=== PATIENT | male | born 1980 | race African-American/Black ===

== ENCOUNTER 2022-05-16 17:32 | Emergency (ER) | payer MEDICAID, OTHER ==
[~2022-05-16] VITALS: Ht 175.3 cm; Wt 65.8 kg
--- NOTE | 2022-05-16 17:35 | NUR ---
BIBA NAD noted. A/O x2.
[2022-05-16] MEDS ORDERED: OMEP40CA21 PO (17:49)
[2022-05-16 18:16] LABS: HEMATOCRIT 34.7 % (36.7-47.1); MEAN CORPUSCULAR HEMOGLOBIN 27.4 uug (23.8-33.4); MEAN CORPUSCULAR VOLUME 83.8 fL (73.0-96.2); PLATELET COUNT (AUTO) 413 K/uL (152-348)
[2022-05-16 18:26] LABS: ALANINE AMINOTRANSFERASE 52 U/L (16-63); ALKALINE PHOSPHATASE 81 U/L (50-136); ASPARTATE AMINOTRANSFERASE 30 U/L (15-37); BILIRUBIN,TOTAL 0.2 mg/dL (0.2-1.0); CARBON DIOXIDE 34 mmol/L (21-32); CHLORIDE 101 mmol/L (98-107); CREATININE 0.8 mg/dL (0.6-1.3); GLUCOSE 115 mg/dL (74-106); LIPASE 71 U/L (73-393); POTASSIUM 3.8 mmol/L (3.5-5.1); TOTAL PROTEIN, SERUM 7.7 g/dL (6.4-8.2); UREA NITROGEN, BLOOD 6 mg/dL (7-18)
[2022-05-16] MEDS ORDERED: PROC10TA13 PO (18:28)
[2022-05-16] MEDS ORDERED: DOCU100C36 PO (18:28)
[2022-05-16] MEDS ORDERED: SUCR1TAB PO (18:28)
[2022-05-16] MEDS ORDERED: PANT40TA2 PO (18:28)
[2022-05-16] MEDS ORDERED: ONDA-104 PO (18:28)
[2022-05-16] MEDS ORDERED: SUCR1ORA PO (18:28)
[2022-05-16 18:30] LABS: BILIRUBIN,DIRECT < 0.1 mg/dL (0.0-0.2)
[2022-05-16] MEDS ORDERED: HYDROMORPHONE 1 MG/1 ML DISP.SYRIN IV ONE ×2 (18:45→20:30)
[2022-05-16] MEDS ORDERED: ONDANSETRON 4 MG/2 ML VIAL IV ONE (18:45)
--- NOTE | 2022-05-16 18:50 | NUR ---
Dr. Jones at bedside. MSE in progress.
[2022-05-16] MEDS ORDERED: ONDANSETRON 4 MG/2 ML VIAL ONE (18:53)
[2022-05-16] MEDS ORDERED: HYDROMORPHONE 1 MG/1 ML DISP.SYRIN ONE ×2 (18:53→20:54)
[2022-05-16] MEDS ORDERED: DICYCLOMINE HCL LIQ 10 MG/5 ML UDC PO ONE (19:00)
[2022-05-16] MEDS ORDERED: MAG HYDROX/AL HYDROX/SIMETH 30 ML LIQUID UDC PO ONE (19:00)
[2022-05-16] MEDS ORDERED: LIDOCAINE VISCUS 2% 15 ML UDC MM ONE (19:00)
[2022-05-16] MEDS ORDERED: DICYCLOMINE HCL LIQ 10 MG/5 ML UDC ONE (19:17)
[2022-05-16] MEDS ORDERED: LIDOCAINE VISCUS 2% 15 ML UDC ONE (19:17)
[2022-05-16] MEDS ORDERED: MAG HYDROX/AL HYDROX/SIMETH 30 ML LIQUID UDC ONE (19:17)
[2022-05-16 19:35] LABS: *BILIRUBIN,URIN NEGATIVE (NEGATIVE); *BLOOD, URINE NEGATIVE (NEGATIVE); *CLARITY,URINE CLEAR (CLEAR); *COLOR,URINE YELLOW (YELLOW); *KETONES,URINE NEGATIVE (NEGATIVE); *UROBILINOGEN,URINE 0.2 E.U./dl (NORMAL); LEUKOCYTE ESTERASE ,URINE NEGATIVE (NEGATIVE); NITRITE, URINE NEGATIVE (NEGATIVE); PH,URINE 8.5 (5.0-8.0); UGLUCOSE NEGATIVE (NEGATIVE)
--- NOTE | 2022-05-16 19:41 | NUR ---
Report given Roberto HARLEY
[2022-05-16 19:52] LABS: *AMPHETAMINE, URINE NEGATIVE (NEGATIVE); *CANNABINOID, URINE NEGATIVE (NEGATIVE); *COCCAINE, URINE NEGATIVE (NEGATIVE); *OPIATE, URINE NEGATIVE (NEGATIVE); *PHENCYCLIDINE SCREEN,URINE NEGATIVE (NEGATIVE)
--- NOTE | 2022-05-16 20:31 | NUR ---
Pt out of ER for CT.
--- NOTE | 2022-05-16 20:43 | NUR ---
Pt back to ER from CT.
[2022-05-16] MEDS ORDERED: HYDR-3980 PO (20:59)
[2022-05-16] MEDS ORDERED: ONDA4TAB5 PO (20:59)
[2022-05-17] MEDS ORDERED: HYDROCODONE/APAP 10-325 MG TABLET ONE (00:39)
--- NOTE | 2022-05-17 00:41 | NUR ---
Patient discharged to home in stable condition. Written and verbal after care instructions given. Patient verbalizes understanding of instructions. Stressed follow up or return to ER for worsening s/s. Patient out of ER with steady gait, taxi voucher in hand, VSS, no acute signs of distress, all belongings taken.
[2022-05-17 00:43] VITALS: BP 123/74
[2022-05-17] MEDS ORDERED: HYDROCODONE/APAP 10-325 MG TABLET PO ONE (00:45)
== END 2022-05-17 00:43 | disposition home or self-care (01) ==
LOC: ER 17:32
DX: R10.13 Epigastric pain (principal); R11.2 Nausea with vomiting, unspecified; F17.210 Nicotine dependence, cigarettes, uncomplicated; Z87.11 Personal history of peptic ulcer disease; Z79.899 Other long term (current) drug therapy; R94.31 Abnormal electrocardiogram [ECG] [EKG]; F15.10 Other stimulant abuse, uncomplicated; S01.01XD Laceration without foreign body of scalp, subsequent encounter; X58.XXXD Exposure to other specified factors, subsequent encounter
CPT/HCPCS: 99285; 74176; 96374; 71045; 96375; 99406; 80076; 80048; 83880; 83690; 85025; 84484 ×2; 36415; 93005; 80307; 81003; J2405; J1170 ×2; A4663